=== PATIENT | male | born 1960 | race Caucasian/White ===

== ENCOUNTER 2020-01-30 09:18 | Inpatient (IN) | payer BC ==
[~2020-01-30] VITALS: Ht 177.8 cm; Wt 83.1 kg
[~2020-01-30 09:18] MED LIST: BACITRACIN 50,000 UNIT ONE; BUPIVACAINE/PF 0.25% ONE; BUPIVACAINE/PF 0.5% ONE; DEXAMETHASONE 4 MG/ML, 5ML ONE; INDIGO CARMINE 0.8%, 5ML ONE; LIDOCAINE/PF 1%, 30ML ONE
[2020-01-30] MEDS ORDERED: MIDAZOLAM 1 MG/ML, 2ML ONE (10:18)
[2020-01-30] MEDS ORDERED: FENTANYL PF 250 MCG/5ML ONE (10:18)
[2020-01-30] MEDS ORDERED: PROPOFOL 50 ML ONE ×3 (10:18→13:24)
[2020-01-30] MEDS ORDERED: CHLORHEXIDINE 15 ML UDC MM STA (10:43)
[2020-01-30] MEDS ORDERED: MELOXICAM (10:55)
[2020-01-30] MEDS ORDERED: IBUPROFEN (10:55)
[2020-01-30] MEDS ORDERED: CELEBREX (10:55)
[2020-01-30] MEDS ORDERED: GABAPENTIN (10:55)
[2020-01-30] MEDS ORDERED: OXYCODONE (10:55)
[2020-01-30] MEDS ORDERED: DIAZEPAM 5 MG/ML, 2ML IVPush PRN (11:00)
[2020-01-30] MEDS ORDERED: LABETALOL 5MG/ML, 20ML IV PRN (11:00)
[2020-01-30] MEDS ORDERED: ONDANSETRON 2MG/ML, 2ML IVPush PRN (11:00)
[2020-01-30] MEDS ORDERED: METOCLOPRAMIDE 5 MG/ML, 2ML IVPush PRN (11:00)
[2020-01-30] MEDS ORDERED: OXYcodone 5 MG/5 ML ORAL.SOL UDC PO PRN (11:00)
[2020-01-30] MEDS ORDERED: PROMETHAZINE 25 MG/ML, 1ML IVPush PRN (11:00)
[2020-01-30] MEDS ORDERED: DIPHENHYDRAMINE 50 MG/ML, 1ML IVPush PRN (11:00)
[2020-01-30] MEDS ORDERED: FENTANYL PF 100 MCG/2ML IV PRN (11:00)
[2020-01-30] MEDS ORDERED: hydrALAzine 20 MG/ML, 1ML IV PRN (11:00)
[2020-01-30] MEDS ORDERED: PLEASE ENTER HEIGHT AND WEIGHT MC SCH (11:00)
[2020-01-30] MEDS ORDERED: MEPERIDINE/PF 25MG/0.5ML IVPush PRN (11:00)
[2020-01-30] MEDS ORDERED: LACTATED RINGERS 1,000 ML IV ONE (11:00)
[2020-01-30] MEDS ORDERED: HYDROmorphone 1 MG/ML, 1ML INJ IVPush PRN (11:00)
[2020-01-30] MEDS ORDERED: DEXAMETHASONE 4 MG/ML, 5ML ONE (11:46)
[2020-01-30] MEDS ORDERED: CEFAZOLIN 1,000 MG ONE (11:46)
[2020-01-30] MEDS ORDERED: METOCLOPRAMIDE 5 MG/ML, 2ML ONE (11:46)
[2020-01-30] MEDS ORDERED: PHENYLEPHRINE 10 MG/ML ONE (11:46)
[2020-01-30] MEDS ORDERED: ONDANSETRON 2MG/ML, 2ML ONE (11:46)
[2020-01-30] MEDS ORDERED: SUCCINYLCHOLINE 20 MG/ML, 10ML ONE (11:46)
[2020-01-30] MEDS ORDERED: OXYcodone 5 MG/5 ML ORAL.SOL UDC ONE (14:51)
[2020-01-30] MEDS ORDERED: ACETAMINOPHEN 650 MG/20.3 ML UDC ONE (14:51)
[2020-01-30] MEDS ORDERED: FENTANYL PF 100 MCG/2ML ONE (14:51)
[2020-01-30] MEDS ORDERED: LABETALOL 5MG/ML, 20ML IVPush PRN (16:30)
[2020-01-30] MEDS ORDERED: SENNA/DOCUSATE TABLET PO PRN (16:30)
[2020-01-30] MEDS ORDERED: HYDROcodone/APAP 5/325 TABLET PO PRN (16:30)
[2020-01-30] MEDS ORDERED: ONDANSETRON 2MG/ML, 2ML IV PRN (16:30)
[2020-01-30] MEDS ORDERED: DEXAMETHASONE 4 MG/ML, 1ML IVPush SCH (18:00)
[2020-01-30 18:40] VITALS: BP 134/82
[2020-01-30] MEDS: D5%-0.9% NACL+KCL 20MEQ 1,000 ML IV SCH (19:17)
[2020-01-30] MEDS: OXYcodone IR 5MG TABLET PO PRN ×2 (19:26→23:50)
[2020-01-30] MEDS: GABAPENTIN 300 MG CAPSULE PO SCH (19:26)
[2020-01-30] MEDS: CEFAZOLIN PMX 1GM/50ML 50 ML IVPB SCH (20:58)
[2020-01-30] MEDS ORDERED: DIAZEPAM 5 MG TABLET PO PRN (21:00)
[2020-01-30] MEDS: DEXAMETHASONE 4 MG/ML, 1ML IVPush SCH (23:50)
[2020-01-31 00:06] VITALS: BP 122/67
[2020-01-31] MEDS: OXYcodone IR 5MG TABLET PO PRN (03:36)
[2020-01-31 03:43] VITALS: BP 108/71
[2020-01-31] MEDS: D5%-0.9% NACL+KCL 20MEQ 1,000 ML IV SCH (04:26)
[2020-01-31] MEDS: CEFAZOLIN PMX 1GM/50ML 50 ML IVPB SCH (04:26)
[2020-01-31] MEDS: DEXAMETHASONE 4 MG/ML, 1ML IVPush SCH ×2 (05:47→13:00)
[2020-01-31 07:43] VITALS: BP 110/67
[2020-01-31] MEDS ORDERED: SENNA/DOCUSATE TABLET PO SCH (09:00)
[2020-01-31] MEDS: GABAPENTIN 300 MG CAPSULE PO SCH (09:20)
[2020-01-31 13:34] VITALS: BP 103/63
== END 2020-01-31 14:57 | disposition home or self-care (01) | DRG 473 ==
LOC: ORIP 09:54 → 2NW 18:46 → DCLOUNGE 01-31 14:43
PROVIDERS: ADMIT Orthopaedic Surgery Orthopaedic Surgery of the Spine; ATTEND Orthopaedic Surgery Orthopaedic Surgery of the Spine
PROC: 0RB30ZZ Excision of Cervical Vertebral Disc, Open Approach (ICD-10-PCS; 2020-01-30)
PROC: 4A11X4G Monitoring of Peripheral Nervous Electrical Activity, Intraoperative, External Approach (ICD-10-PCS; 2020-01-30)
PROC: 0RG20A0 Fusion of 2 or more Cervical Vertebral Joints with Interbody Fusion Device, Anterior Approach, Anterior Column, Open Approach (ICD-10-PCS; principal; 2020-01-30 11:00)
DX: M48.02 Spinal stenosis, cervical region (principal); M50.121 Cervical disc disorder at C4-C5 level with radiculopathy; M25.511 Pain in right shoulder; Z20.828 Contact with and (suspected) exposure to other viral communicable diseases
CPT/HCPCS: 72040; J3490; S0020; 87635; 95938; 95941; C1713; G0378; J0690; J1100; J2250; J2405; J2704; J3010; C1762; C1889; J0330; J2370; J2765; J3480; J7120

== ENCOUNTER 2020-02-08 04:26 | Observation (INO) | payer BC ==
[~2020-02-08] VITALS: Ht 177.8 cm; Wt 84.0 kg
[~2020-02-08 04:26] MED LIST changes: -BACITRACIN 50,000 UNIT ONE; -BUPIVACAINE/PF 0.25% ONE; -BUPIVACAINE/PF 0.5% ONE; +CELEBREX; -DEXAMETHASONE 4 MG/ML, 5ML ONE; +GABAPENTIN; +IBUPROFEN; -INDIGO CARMINE 0.8%, 5ML ONE; -LIDOCAINE/PF 1%, 30ML ONE; +MELOXICAM; +OXYCODONE
--- NOTE | 2020-02-08 04:49 | NUR ---
PT BIB [facility] FOR RIGHT RIB PAIN. PT HAD CERVICAL FUSION ON 01/29. PT WOKE UP WITH BACK SPASMS TODAY 12/22 PAIN. PT MEDICATED WITH 12.5MG KETAMINE AND 50 MCG FENTYNAL SOD FARMER. PAIN NOW 07/22.PT ABLE TO AMBULATE WITH NO ASSISTANCE. VSS. PA AT BEDSIDE. CALL LIGHT IN REACH
[2020-02-08] MEDS ORDERED: METHOCARBAMOL 750 MG TABLET ONE (04:57)
[2020-02-08] MEDS ORDERED: KETOROLAC 30 MG/1 ML ONE (04:58)
[2020-02-08] MEDS ORDERED: METHOCARBAMOL 750 MG TABLET PO ONE (05:00)
[2020-02-08] MEDS ORDERED: KETOROLAC 30 MG/1 ML IVPush ONE (05:00)
[2020-02-08] MEDS ORDERED: SODIUM CHLORIDE FLUSH 10ML SYR IVF ONE (05:00)
[2020-02-08 05:54] LABS: BASOPHILS % (AUTO) 0 % (0-1); EOSINOPHILS % (AUTO) 0 % (1-7); LYMPHOCYTES % (AUTO) 5 % (22-44); MEAN CORPUSCULAR HEMOGLOBIN 30.8 pg (27.5-34.5); MEAN CORPUSCULAR HGB CONC 33.8 g/dL (33.2-36.2); MEAN PLATELET VOLUME 6.6 fL (7.4-10.4); MONOCYTES % (AUTO) 9 % (2-9); NEUTROPHILS % (AUTO) 85 % (42-75); PLATELET COUNT 168 x10^3/uL (130-400); RED BLOOD COUNT 4.59 x10^6/uL (4.38-5.82); RED CELL DISTRIBUTION WIDTH 12.8 % (9.4-14.8)
--- NOTE | 2020-02-08 05:55 | NUR ---
PT MEDICATED AND GIVEN A PILLOW. VSS. WAITING FOR LAB RESULTS. FAMILY AT BEDSIDE. CALL LIGHT IN REACH
[2020-02-08 06:00] LABS: MD NO
[2020-02-08 06:06] LABS: ALBUMIN 3.2 g/dL (3.4-5.0); ANION GAP 6 mmol/L (5-15); CALCIUM 8.7 mg/dL (8.5-10.1); CHLORIDE 106 mmol/L (98-107)
[2020-02-08 06:12] LABS: CREATININE 1.04 mg/dL (0.7-1.3); TROPONIN I < 0.015 ng/mL (0.000-0.045)
--- NOTE | 2020-02-08 06:54 | NUR ---
REPORT TO ORLANDO LAGUNA
--- NOTE | 2020-02-08 06:58 | NUR ---
REPORT TAKEN FROM LUZ ELENA LANDRY AT BEDSIDE, THIS RN ASSUMING CARE. PT RESTING ON GURNEY, A&O, RESPS EVEN AND UNLABORED. THIS RN INFORMED PT WILL NEED A PIV IN AC REGION OR HIGHER FOR CTA.
--- NOTE | 2020-02-08 07:20 | NUR ---
PIV PLACED, 18G LAC. CT CALLED TO COLLECT PT FOR CT SCAN. PT REPORTS RT LOWER RIB PAIN 5/10, TOLERABLE. PT A&O, RESPS EVEN AND UNLABORED, NADN. VETERINARY LABORATORY TECHNICIAN PLACED, SINUS TACH RATE 90'S WITH NO ECTOPY. CALL LIGHT IN REACH. DAUGTER AT BEDSIDE.
[2020-02-08] MEDS ORDERED: OMNIPAQUE 350 MG/ML, 75ML BOTTLE ONE (08:06)
--- NOTE | 2020-02-08 08:29 | NUR ---
CTA RESULTS REVIEWED WITH CECIL ARCOS AT BEDSIDE AT THIS TIME TO EXPLAIN POC AND RESULTS WITH PT AND DAUGHTER.
[2020-02-08] MEDS ORDERED: SODIUM CHLORIDE 0.9% 1,000ML IVBOLUS ONE (08:30)
[2020-02-08] MEDS ORDERED: APIXABAN 5 MG TABLET ONE (08:52)
[2020-02-08] MEDS: APIXABAN 5 MG TABLET PO SCH ×2 (08:57→20:10)
--- NOTE | 2020-02-08 09:15 | NUR ---
PT MEDICATED PER EMAR, EDUCATED REGARDING ELIQUIS FOR TREATMENT OF PE. PT STATES HE DENIES DARK/BLOODY STOOLS OR EMESIS, ALSO DENIES RECENT TRAUMA. PT REMAINS ON ALL MONITORS, PT A&OX4, NEURO INTACT, BILATERAL GRASP EQUAL, NO DRIFT. NSR ON CANOE INSPECTOR, RATE 70'S WITH NO ECTOPY. CALL LIGHT IN REACH. PT DENIES ANY NEEDS AT THIS TIME.
[2020-02-08] MEDS ORDERED: OXYcodone/APAP 10/325MG TABLET ONE (10:04)
--- NOTE | 2020-02-08 10:07 | NUR ---
EDMD AVITIA NOTIFIED PT REPORTING 09/21 RT RIB PAIN, ORDER RECEIVED, PT MEDICATED. TOLERATED WELL. PT A&O, RESPS EVEN AND UNLABORED, NSR ON SENIOR NET C DEVELOPER WITH NO ECTOPY, RATE 70'S. MD HAIDER AT BEDSIDE TO ADMIT PT.
[2020-02-08] MEDS ORDERED: OXYcodone/APAP 10/325MG TABLET PO ONE (10:30)
[2020-02-08] MEDS ORDERED: LYSINE PO (10:36)
[2020-02-08] MEDS ORDERED: CELE200C PO (10:36)
[2020-02-08] MEDS ORDERED: MULT-516 PO (10:36)
[2020-02-08] MEDS ORDERED: OXYC10TA6 PO (10:36)
[2020-02-08] MEDS ORDERED: MAGNESIUM PO (10:36)
[2020-02-08] MEDS ORDERED: GABA600T7 PO (10:36)
[2020-02-08] MEDS ORDERED: ACET650S21 PO (10:36)
--- NOTE | 2020-02-08 10:58 | NUR ---
REPORT GIVEN TO LUZ ELENA CHUN, PT AWAITING TRANSPORT TO CARDIAC TELE. PT IS A&O, NSR ON MIGRANT LEADER RATE 70'S WITH NO ECTOPY. PT STILL REPORTING RT RIB PAIN, 09/21. RECEIVING RN AWARE OF NEED TO REASSESS NEED FOR REPEAT PAIN MED PERCOCET WAS ADMIN APPROX 50 MIN AGO. MD HAIDER OK'D PT TO EAT AND DRINK, COFFEE PROVIDED, PT DECLINES FOOD AT THIS TIME.
--- NOTE | 2020-02-08 11:45 | NUR ---
pt reports pain controlled at this time. pt a&o, resps even and unlabored, neuro intact. nsr on cardiac rehabilitation program director with no ectopy, spo2 96% on room air. pt transported to cardiac tele with EDTdomenica at transport.
[2020-02-08 11:55] VITALS: BP 126/74
[2020-02-08] MEDS ORDERED: ACETAMINOPHEN 650 MG/20.3 ML UDC PO PRN (12:00)
[2020-02-08] MEDS ORDERED: ONDANSETRON ODT 4 MG PO PRN (12:30)
[2020-02-08] MEDS ORDERED: ONDANSETRON 2MG/ML, 2ML IVPush PRN (12:30)
[2020-02-08] MEDS ORDERED: LYSI100010 PO (12:59)
[2020-02-08] MEDS ORDERED: ALBUTEROL HFA 90 MCG/SPRAY INH PRN (13:30)
[2020-02-08 14:21] VITALS: BP 114/73
[2020-02-08] MEDS: GABAPENTIN 300 MG CAPSULE PO SCH ×2 (15:57→20:10)
[2020-02-08] MEDS: OXYcodone IR 5MG TABLET PO PRN ×2 (15:58→22:20)
[2020-02-08 18:39] VITALS: BP 109/69
[2020-02-09 01:07] VITALS: BP 147/91
[2020-02-09] MEDS: OXYcodone IR 5MG TABLET PO PRN (06:02)
[2020-02-09 07:28] VITALS: BP 113/71
[2020-02-09 07:53] LABS: ANION GAP 3 mmol/L (5-15); CALCIUM 8.7 mg/dL (8.5-10.1); CHLORIDE 103 mmol/L (98-107); CREATININE 0.98 mg/dL (0.7-1.3)
[2020-02-09] MEDS: GABAPENTIN 300 MG CAPSULE PO SCH (08:58)
[2020-02-09] MEDS: APIXABAN 5 MG TABLET PO SCH (08:59)
[2020-02-09] MEDS ORDERED: MULTIVITAMIN 1 TABLET PO SCH (09:00)
[2020-02-09] MEDS ORDERED: APIX5TAB PO (10:36)
[2020-02-09 12:47] VITALS: BP 107/71
== END 2020-02-09 13:10 | disposition home or self-care (01) ==
LOC: ED 05:46 → EDIP 09:44 → INTOOBSV 09:44 → 5SO 11:48 → DCLOUNGE 02-09 13:00
PROVIDERS: ADMIT Hospitalist; ATTEND Family Medicine
DX: I26.99 Other pulmonary embolism without acute cor pulmonale (principal); I95.9 Hypotension, unspecified; E78.5 Hyperlipidemia, unspecified; M19.90 Unspecified osteoarthritis, unspecified site; F17.200 Nicotine dependence, unspecified, uncomplicated; Z79.899 Other long term (current) drug therapy; Z98.890 Other specified postprocedural states
CPT/HCPCS: 36415; 71045; 71275; 80048; 82040; 83735; 84484; 85025; 85379; 93005; 93306; 96361; 96374; 97161; 99285; G0378; J1885; J7030; Q9967